=== PATIENT | female | born 1960 | race Caucasian/White ===

== ENCOUNTER → 2016-09-08 | Outpatient (REF) | payer OTHER ==
[2016-09-09 12:42] LABS: ALBUMIN 4.3 GM/DL (3.2-5.2); ALBUMIN/GLOBULIN RATIO 1.39 (1.00-1.93); ALKALINE PHOSPHATASE 95 U/L (45-117); ALT/SGPT 24 U/L (12-78); ANION GAP 13 MEQ/L (8-16); AST/SGOT 22 U/L (15-37); BILIRUBIN,TOTAL 0.6 MG/DL (0.2-1.0); BLOOD UREA NITROGEN 14 MG/DL (7-18); CALCIUM LEVEL 9.3 MG/DL (8.5-10.1); CARBON DIOXIDE LEVEL 25 MEQ/L (21-32); CHLORIDE LEVEL 102 MEQ/L (98-107); CREATININE FOR GFR 0.81 MG/DL (0.55-1.02); GLOMERULAR FILTRATION RATE > 60.0 (>51); GLUCOSE, FASTING 84 MG/DL (70-105); POTASSIUM SERUM 4.3 MEQ/L (3.5-5.1); SODIUM LEVEL 140 MEQ/L (136-145); TOTAL PROTEIN 7.4 GM/DL (6.4-8.2)
== END ==
LOC: M SFHCCLAY 16:42
PROVIDERS: ATTEND Nurse Practitioner
DX: E03.9 Hypothyroidism, unspecified (principal)

== ENCOUNTER → 2016-10-20 | Outpatient (REF) | payer OTHER | LOC: M SFHCWAGY 08:43 | PROVIDERS: ATTEND Nurse Practitioner Women's Health | DX: Z12.4 Encounter for screening for malignant neoplasm of cervix (principal); Z12.31 Encounter for screening mammogram for malignant neoplasm of breast ==

== ENCOUNTER → 2016-10-20 | Outpatient (CLI) | payer OTHER ==
--- NOTE | 2016-10-20 10:52 | REP ---
Digital screening mammography with CAD: Comparison mammography is from October 07, 2012, October 10, 2013, and October 11, 2014. October 15, 2015 study is also reviewed. Findings: Scattered fibroglandular elements are again noted unchanged. A needle biopsy marker clip is seen superficially in the upper outer quadrant of the left breast. Elsewhere in the upper outer quadrant of the left breast is a grouping of punctate microcalcifications which merit further evaluation. On MLO view there appear to be 8-10 polymorphic microcalcifications. Diagnostic left breast imaging was recommended. No suspicious abnormalities noted on the right. Impression: BIRADS category 0 incomplete breast imaging. Possible grouping of microcalcifications upper outer quadrant left breast. Diagnostic left mammography recommended. This mammogram was interpreted with the aid of an FDA-approved computer-aided detection system. The patient states she/he had a clinical breast exam in October 2016. The patient letter being requested is M0. Signed by Giorgi Garcia MD 10/20/2016 12:08 P
== END ==
LOC: M WHC 07:56
PROVIDERS: ATTEND Nurse Practitioner Women's Health
DX: Z12.31 Encounter for screening mammogram for malignant neoplasm of breast (principal); R92.8 Other abnormal and inconclusive findings on diagnostic imaging of breast

== ENCOUNTER → 2016-10-22 | Outpatient (CLI) | payer OTHER ==
--- NOTE | 2016-10-22 14:12 | REP ---
DIGITAL DIAGNOSTIC UNILATERAL LEFT BREAST MAMMOGRAPHY WITH CAD AND FOCUSED LEFT BREAST SONOGRAPHY: HISTORY: Screening mammography from October 20, 2016 was BIRADS category 0 incomplete because of possible grouping of microcalcifications projecting in the upper outer quadrant on the left. The patient gives a history of previous benign excisional and stereotactic needle biopsies of the left breast. Comparison is also made with October 15, 2015 prior mammography. MAMMOGRAPHIC FINDINGS: Magnified focal spot compression CC, MLO, and true MLO views of the left breast confirm the presence of a polymorphic microcalcific grouping in a 7 mm nodular opacity and in the surrounding breast parenchyma. This lesion projects in the upper outer quadrant middle third of the left breast. No other suspicious mammographic abnormality. SONOGRAPHIC FINDINGS: The left breast is scanned from the 12-o'clock position to 3-o'clock position encompassing the upper outer quadrant of the left breast. Fairly homogeneous background echotexture is seen. No mass, acoustic shadowing, architectural distortion or cyst is seen. IMPRESSION: BIRADS category 4 suspicious left breast imaging. Nodular density containing and surrounded by microcalcifications upper outer quadrant. Histologic sampling is recommended via stereotactic needle biopsy if possible. B-RADS/ACR category 4 mammogram. Suspicious abnormality - biopsy should be considered. Usually requires biopsy. This mammogram was interpreted with the aid of an FDA-approved computer-aided detection system. The patient states she/he had a clinical breast exam in October 23, 2016. The patient letter being requested is M4. Signed by Giorgi Garcia MD 10/22/2016 05:01 P
== END ==
LOC: M RAD 11:00
PROVIDERS: ATTEND Nurse Practitioner Women's Health
DX: Z12.31 Encounter for screening mammogram for malignant neoplasm of breast (principal)

== ENCOUNTER → 2016-11-12 | Outpatient (CLI) | payer OTHER ==
[~2016-11-12] MED LIST: LIDOCAINE 1% MDV 20ML VIAL As Ordered ONE
--- NOTE | 2016-11-12 14:57 | REP ---
STEROTACTIC IMAGES LEFT BREAST: Multiple sterotactic images of the left breast are performed prior to a scheduled sterotactic biopsy of clustered microcalcifications in the upper outer quadrant. Sales Appointment Coordinator images were obtained in the lateral to medial projection as well as in the craniocaudal projection. Neither projection allowed enough needle throw to allow for the biopsy to be performed. The sterotactic biopsy is not possible. We could perform needle localization for excisional biopsy. Signed by Rolando Estrada MD 11/12/2016 04:59 P
== END ==
LOC: M RADPRO 10:45
PROVIDERS: ATTEND Surgery
DX: R92.0 Mammographic microcalcification found on diagnostic imaging of breast (principal)

== ENCOUNTER → 2016-11-28 | Outpatient (REF) | payer OTHER ==
[~2016-11-28] MED LIST changes: +LEVO75TA4 PO; -LIDOCAINE 1% MDV 20ML VIAL As Ordered ONE; +SYNT50TA PO
== END ==
LOC: M SFHCCLAY 11:19
PROVIDERS: ATTEND Nurse Practitioner
DX: E03.9 Hypothyroidism, unspecified (principal)

== ENCOUNTER → 2016-12-05 | Day surgery (SDC) | payer OTHER ==
[~2016-12-05] VITALS: Ht 160 cm; Wt 74.8 kg
[~2016-12-05] MED LIST changes: +ACETAMINOPHEN TAB 650MG DOSE (2X325MG) PO PRN; +KETOROLAC 60 MG/2 ML VIAL (J1885) As Ordered ONE; +LIDOCAINE 1% MDV 20ML VIAL As Ordered ONE; +LIDOCAINE 1% SDV INJ 30 ML VIAL As Ordered ONE; +LIDOCAINE 2% INJ 100 MG/5 ML SDV (FOR ANES.) As Ordered ONE; +LR 1,000 ML IV ONE; +LR 1,000 ML IV SCH; +METOCLOPRAMIDE INJ 10MG/2ML VIAL (J2765) IV PRN; +MIDAZOLAM INJ 2 MG/2 ML VIAL (J2250) As Ordered ONE; +MORPHINE 2 MG/ML 1ML SYRINGE IV PRN; +NORCO, ANEXSIA 5/325MG TABLET (HYDROcodone/ACETAMINOPHEN) PO PRN; +NORCOTAB PO; +ONDANSETRON 4MG/2ML VIAL (J2405) As Ordered ONE; +ONDANSETRON 4MG/2ML VIAL (J2405) IV PRN; +PERCOCET 5MG/325MG TAB PO PRN; +PROPOFOL 200 MG/20 ML VIAL As Ordered ONE; +fentaNYL 100 MCG/2 ML INJECTION (J3010) As Ordered ONE; +fentaNYL 100 MCG/2 ML INJECTION (J3010) IV PRN
--- NOTE | 2016-12-05 14:41 | REP ---
SPECIMEN RADIOGRAPH: Specimen radiograph is performed following lumpectomy and surgical biopsy of clustered microcalcifications in the upper left breast. Calcifications are seen in the specimen adjacent to the localizing wire. Signed by Rolando Estrada MD 12/05/2016 03:59 P
[2016-12-05 15:20] VITALS: BP 124/65
--- NOTE | 2016-12-05 17:09 | REP ---
LEFT BREAST LOCALIZATION: The procedure was performed under the direct supervision of Dr. Estrada. The patient has a history of nodular density containing and surrounded by microcalcifications in the upper outer quadrant on the left breast seen on a previous mammogram dated 10/22/2016. A stereotactic left breast biopsy was attempted on 11/12/2016, however, there was not enough breast compression thickness. The patient was then referred for surgical biopsy. The risks and benefits of the procedure were explained to the patient and informed consent was obtained. A lateral medial approach was utilized. The calcifications were localized using mammographic guidance. The skin was prepped and draped in a sterile fashion. 1% Xylocaine was used as a local anesthetic. A 5 cm Liberty needle wire system was inserted. Followup mammographic images demonstrate good needle placement. The patient tolerated the procedure well and there were no immediate complications. Reviewed by PA Zuniga 12/08/2016 03:16 PEdited and Signed by Rolando Estrada MD 12/08/2016 04:52 P
--- NOTE | 2016-12-07 06:50 | RO ---
DATE OF PROCEDURE: 12/05/2016 PREOPERATIVE DIAGNOSIS: Microcalcifications left breast. POSTOPERATIVE DIAGNOSIS: Microcalcifications left breast. PROCEDURE PERFORMED: Needle-localized excisional biopsy of microcalcification left breast. SURGEON: Harshil Alarcon MD CUSTOMER SERVICE CONSULTANT: ANESTHESIA: Local of 1% Xylocaine with monitored anesthesia care. INDICATIONS FOR THE PROCEDURE: Patient is a 56-year-old woman who underwent routine mammography and was found to have a cluster of the faint microcalcifications in the upper outer quadrant of the breast. She was initially scheduled for stereotactic biopsy, but this was not possible due to inadequate breast thickness. She is now for a needle-localized excisional biopsy. OPERATIVE PROCEDURE: The patient had a localizing wire placed in the x-ray department. This entered the breast laterally and extended toward the retroareolar area. She was taken to the operating room where she was placed on the table in a supine position. She received sedation from anesthesia. The patient's left breast and chest wall were prepped and draped in a sterile fashion. The course of the needle was marked on the skin with a skin marker. I estimated from the provided targeting images the depth of the calcifications. These were estimated to lie just beneath or deep to the upper outer portion of the areola and almost centrally within the retroareolar tissues. I elected to make a circumareolar incision in the upper outer quadrant of the breast. She had an old scar also in the upper outer quadrant of the breast noted. Local anesthesia was achieved with 1% Xylocaine. An approximately 3-4 cm incision was made curving around the upper outer portion of the areola. The incision was deepened into the subcutaneous tissues. The surrounding skin was elevated slightly, particularly laterally. Dissection was then carried deeper into the breast to identify the guidewire. The guidewire was then cut laterally and brought into the wound. Dissection then proceeded along both sides of the specimen with a wide margin extending medially toward the retroareolar area and then deeper toward the pectoral fascia. In this manner, an approximately 4 x 3 x 2 cm portion of tissue was excised with the guidewire in place. A specimen image was obtained with the Momo device. On the first image, I could not be certain that there were calcifications. A second small portion of tissue was excised at the medial end of the dissection in the more central portion of the retroareolar area from the breast tissue in this region. This was approximately 2 x 2 x 1 cm fragment of tissue. This was placed onto the grid and a second bioptics image was obtained. On the second image, I could see what appeared to be some calcifications at the tip of the wire in the first specimen but none in the second specimen. These were quite faint and I elected to send the specimens down to the x-ray department for better imaging capability. These were both then sent fresh to the x-ray department for imaging. While this process was taking place, I inspected the wound for hemostasis and ensured this with the cautery. The breast tissue was elevated off of the underlying pectoral muscle superiorly and inferiorly so that this could be brought together to fill the gap. The breast tissue was approximated with buried sutures of chromic. The subcutaneous tissues were closed with chromic as well, and the skin edges were then brought into apposition with some buried chromic sutures and the skin incision was closed with a running subcuticular suture of Vicryl and Steri-Strips. As we approached the completion of the closure of wound, I received a call from Dr. Estrada of radiology who indicated to the nurse that the calcifications were within the specimen. A dressing was applied. The patient was awakened in the operating room and transported to the recovery room in stable condition.
== END ==
LOC: M SDC 07:45
PROVIDERS: ATTEND Surgery
DX: D05.12 Intraductal carcinoma in situ of left breast (principal); E03.9 Hypothyroidism, unspecified; Z79.899 Other long term (current) drug therapy; Z78.0 Asymptomatic menopausal state
CPT/HCPCS: 19125; 72265; 76098; 88305; 88342; J1885; J2250; J2405; J3010

== ENCOUNTER → 2016-12-30 | Outpatient (CLI) | payer OTHER ==
[~2016-12-30] MED LIST changes: -ACETAMINOPHEN TAB 650MG DOSE (2X325MG) PO PRN; -KETOROLAC 60 MG/2 ML VIAL (J1885) As Ordered ONE; -LIDOCAINE 1% MDV 20ML VIAL As Ordered ONE; -LIDOCAINE 1% SDV INJ 30 ML VIAL As Ordered ONE; -LIDOCAINE 2% INJ 100 MG/5 ML SDV (FOR ANES.) As Ordered ONE; -LR 1,000 ML IV ONE; -LR 1,000 ML IV SCH; -METOCLOPRAMIDE INJ 10MG/2ML VIAL (J2765) IV PRN; -MIDAZOLAM INJ 2 MG/2 ML VIAL (J2250) As Ordered ONE; -MORPHINE 2 MG/ML 1ML SYRINGE IV PRN; -NORCO, ANEXSIA 5/325MG TABLET (HYDROcodone/ACETAMINOPHEN) PO PRN; -ONDANSETRON 4MG/2ML VIAL (J2405) As Ordered ONE; -ONDANSETRON 4MG/2ML VIAL (J2405) IV PRN; -PERCOCET 5MG/325MG TAB PO PRN; -PROPOFOL 200 MG/20 ML VIAL As Ordered ONE; -fentaNYL 100 MCG/2 ML INJECTION (J3010) As Ordered ONE; -fentaNYL 100 MCG/2 ML INJECTION (J3010) IV PRN
--- NOTE | 2017-01-01 12:00 | RADONC ---
RADIATION ONCOLOGY CONSULTATION NOTE: DATE: 12/30/2016 CHART NUMBER: [id number]. DIAGNOSIS: Left breast cancer. STAGE: 0, [id number] ECOG PERFORMANCE STATUS: Zero. CONSULTATION NOTE: Ms. Anderson is a very pleasant, 56-year-old white female with the diagnosis of a stage 0, [id number], ductal carcinoma in situ of the left breast who is presenting to us today status post lumpectomy for consideration of postoperative radiation therapy for conservative breast management and cure. HISTORY OF PRESENT ILLNESS: The patient was in her usual state of health until routine mammogram was done on 10/20/2016, which showed some microcalcifications in the left breast. On 12/05/2016, the patient underwent needle localization, excisional biopsy and pathology revealed ductal carcinoma in situ. ER/AK stains were positive. The margins of resection appeared to be negative. The tumor measured 0.5 cm in diameter. The specimen size was 3 cm x 4 cm x 0.5 cm. A second piece was 2.5 cm x 2 cm x 0.5 cm. The patient has done well since surgery and is now presenting to us for discussion of postoperative radiation therapy as a therapeutic option. PAST MEDICAL HISTORY: The patient's past medical history is positive for hypothyroidism. ALLERGIES: The patient has NO KNOWN DRUG ALLERGIES. SOCIAL HISTORY: The patient does not smoke cigarettes nor abuse alcohol. FAMILY HISTORY: The patient's family history is positive for a father with leukemia and prostate cancer. REVIEW OF SYSTEMS: CONSTITUTIONAL: No fever, chills, sweats, fatigue, or weight loss. HEENT: No oral discomfort or mouth or lip ulcers. Hearing normal in both ears. RESPIRATORY: Denies cough, dyspnea, hemoptysis, pleurisy. CARDIOVASCULAR: Denies chest pain, palpitations. MUSCULOSKELETAL: Denies skeletal pain, joint swelling, pain, or erythema. GENITOURINARY: No history of urinary frequency, burning, hematuria, or pain. No testicular swelling or lumps. GASTROINTESTINAL: No nausea, vomiting, constipation, diarrhea, dysphagia, bleeding, or anorexia. SKIN: Denies rash, ecchymosis, petechiae, jaundice. NEUROLOGICAL: No headache, visual difficulty, motor weakness, sensory deficits, no paresthesias. EXTREMITIES: No extremity edema. PHYSICAL EXAMINATION: HEENT: No scleral icterus. Oral pharynx, oral mucous membranes normal. Conjunctivae normal. No thyroid enlargement or nodule. No jugular venous distention. Neck supple. Carotid upstrokes 1+, no bruits. Fundi normal bilaterally. RESPIRATORY: Lungs clear bilaterally to auscultation and percussion. No rales, rhonchi, or wheezing. BREASTS: Symmetrical, no palpable mass, no nipple discharge. CARDIOVASCULAR: PMI 5th left intercostal space, midline. S1, S2 normal. No S3, S4 or murmurs. Regular rhythm. Femoral, dorsalis pedis pulses 2+ bilaterally. LYMPHATICS: No palpable lymphadenopathy. ABDOMEN: Soft, nontender. Bowel sounds normal. No tenderness, guarding, or rebound. No palpable masses or hepatosplenomegaly. RECTAL: No masses or tenderness. Stool brown color. GENITOURINARY: Pelvic exam deferred - not applicable. MUSCULOSKELETAL: No focal skeletal tenderness to percussion. No joint swelling, warmth, tenderness, or erythema. SKIN: No rash, ecchymosis, or petechiae. Normal turgor. EXTREMITIES: No edema, clubbing, cyanosis. No thigh or calf tenderness. Normal range of motion. NEUROLOGICAL: No motor or sensory deficits. Cranial nerves intact, no pathological reflexes. MSRs 2+ and symmetrical. Visual coffman full to confrontation. Pupils equal, round, reactive to light and accommodation. ASSESSMENT: The patient is presenting to us today for discussion of her various therapy treatment options. I have discussed with her the most recent NCCN guidelines for ductal carcinoma in situ. We discussed in great detail the rates of local control with radiation versus without radiation. We discussed the trends in present thinking and treatment. I discussed logistics of treatment planning, simulation and subsequent fractionated daily radiation treatments. We also discussed long-term cosmetic results with radiation and without radiation. We discussed the overall cure rates. In addition, I went through great length with her discussing traditional fractionated daily radiation therapy versus the [place] protocol with hypofractionated treatments. She is quite young and I made clear to her that the studies do not project out more than just 12-13 years. I made clear that we cannot guarantee the cosmetic results 20-30 years from now with the hyperfractionation techniques. I have given her a copy of the NCCN guidelines and in addition, I have placed her on our list for discussion at multidisciplinary tumor conference. I have scheduled her to come back to us the following day to discuss the recommendations at tumor conference as well as her final decision. We have also set her up for initiation of treatment planning. This is a left-sided breast cancer and I explained her that once treatment planning is undertaken we will be able to see whether or not we can eliminate the majority of the heart from the radiation field. The amount of heart included in the field of course may be a factor in her final decision as well. Once again, in summary, I have scheduled the patient to be seeing us following discussion at multidisciplinary tumor conference to initiate treatment planning. Clearly the standard of care at this point is lumpectomy, followed by external beam radiation therapy. That appears to be the general consensus of the NCCN guidelines. Once again, as mentioned above, those recommendations are in the process of review and then we will go from there. cc: MD Harley Woody MD
== END ==
LOC: M ONCR 13:02
PROVIDERS: ATTEND Radiology Radiation Oncology
DX: C50.912 Malignant neoplasm of unspecified site of left female breast (principal)

== ENCOUNTER 2017-01-08 11:35 | Outpatient (RCR) | payer OTHER ==
[~2017-01-08 11:35] MED LIST changes: -SILV-4 TOP
--- NOTE | 2017-01-27 08:00 | RADONC ---
RADIATION ONCOLOGY PROGRESS NOTE DATE: 01/26/2017 CHART NUMBER: [id number] Ms. Anderson underwent her first fraction of radiation today to her left breast. Radiation was tolerated without difficulty or discomfort. REVIEW OF SYSTEMS: The patient's review of systems is noncontributory. She denies nausea, vomiting, fevers, chills, night sweats, diplopia, headaches, anxiety or depression, anorexia, weight loss, visual disturbances, chest pain, urinary or bowel difficulties, bone pain, or neurological problems. PHYSICAL EXAMINATION: The patient's skin is in excellent condition clearly showing no radiation change present. The remainder of her physical exam remains unchanged as well. Ms. Anderson tolerated her first fraction without difficulty and radiation will continue as scheduled.
== END 2017-02-02 ==
LOC: M ONCR 11:35
PROVIDERS: ATTEND Radiology Radiation Oncology
DX: D05.12 Intraductal carcinoma in situ of left breast (principal)

== ENCOUNTER → 2017-01-08 | Outpatient (CLI) | payer OTHER ==
[~2017-01-08] MED LIST changes: +SILV-4 TOP
[2017-01-08 12:03] LABS: MEAN CORPUSCULAR HEMOGLOBIN 28.5 pg (27.0-33.0); MEAN CORPUSCULAR HGB CONC 33.7 g/dl (32.0-36.5); MEAN CORPUSCULAR VOLUME 84.6 fl (80.0-96.0); RED CELL DISTRIBUTION WIDTH 12.8 % (11.5-14.5); WHITE BLOOD COUNT 7.2 K/mm3 (4.0-10.0)
== END ==
LOC: M RAD 10:46
PROVIDERS: ATTEND Radiology Radiation Oncology
DX: C50.912 Malignant neoplasm of unspecified site of left female breast (principal)

== ENCOUNTER 2017-02-03 10:12 | Outpatient (RCR) | payer OTHER ==
--- NOTE | 2017-02-09 15:19 | RADONC ---
RADIATION ONCOLOGY PROGRESS NOTE: DATE: 02/09/2017 CHART NUMBER: [id number] Ms. Anderson is presently at a dose of 1980 cGy to her left breast and is tolerating treatments quite well at this point with no complaints related to her radiation therapy. She has no breast or bone pain. REVIEW OF SYSTEMS: The patient's review of systems is noncontributory. Denies nausea, vomiting, fevers, chills, night sweats, diplopia, headaches, anxiety or depression, anorexia, weight loss, visual disturbances, chest pain, urinary or bowel difficulties, bone pain, or neurological problems. PHYSICAL EXAMINATION: The patient's skin is in good condition with no evidence moist or dry desquamation. There is just some erythema and tanning present. The remainder of physical exam remains unchanged. ASSESSMENT: The patient is clinically doing well at this point and radiation will continue as scheduled.
--- NOTE | 2017-02-17 08:33 | RADONC ---
RADIATION ONCOLOGY PROGRESS NOTE DATE: 02/16/2017 CHART NUMBER: [id number] Ms. Anderson is presently at a dose of 2880 cGy to her left breast and is tolerating treatments quite well at this point with no complaints related to her radiation therapy. She is having no breast or bone pain. REVIEW OF SYSTEMS: The patient's review of systems is noncontributory. She denies nausea, vomiting, fevers, chills, night sweats, diplopia, headaches, anxiety or depression, anorexia, weight loss, visual disturbances, chest pain, urinary or bowel difficulties, bone pain, or neurological problems. PHYSICAL EXAMINATION: The patient's skin is in good condition with no evidence of radiation change present. There is no moist or dry desquamation. The remainder of her physical exam remains unchanged. ASSESSMENT: Ms. Anderson is tolerating treatments quite well and radiation will continue as scheduled.
[2017-02-23] MEDS ORDERED: SILV-4 TOP (16:10)
--- NOTE | 2017-02-24 08:54 | RADONC ---
RADIATION ONCOLOGY PROGRESS NOTE DATE OF SERVICE: 02/23/2017 CHART NUMBER: [id number] Ms. Anderson is presently at a dose of 3780 cGy to her left breast and is tolerating treatments quite well at this point with no significant difficulties related to her radiation therapy other than some tenderness of the skin in the axillary region. The patient's review of systems is positive for some axillary skin tenderness but is otherwise noncontributory. She denies nausea, vomiting, fevers, chills, night sweats, diplopia, headaches, anxiety or depression, anorexia, weight loss, visual disturbances, chest pain, urinary or bowel difficulties, bone pain, or neurological problems. PHYSICAL EXAMINATION: The patient's skin is in good condition with no evidence of moist or dry desquamation. There is some erythema mostly in the axillary region. The remainder of her physical exam remains unchanged. Ms. Anderson is tolerating treatments quite well and radiation will continue as scheduled.
--- NOTE | 2017-02-28 06:48 | RADONC ---
RADIATION ONCOLOGY SIMULATION NOTE DATE: 02/26/2017 CHART NUMBER: [id number] Ms. Anderson was taken to the linear accelerator today for clinical setup of her left breast electron beam boost field. Setup was accomplished without difficulty or discomfort. Radiation treatment planning is underway and radiation treatments will begin subsequently. An immobilization device will be used throughout the course of treatment and has been setup without difficulty. I was physically present throughout the course of CT simulation.
--- NOTE | 2017-03-03 09:43 | RADONC ---
RADIATION ONCOLOGY PROGRESS NOTE DATE: 03/02/2017 CHART NUMBER: [id number] Ms. Anderson is presently at a dose of 4680 cGy to her left breast and is tolerating treatments quite well at this point with no complaints related to her radiation therapy. She is having no breast or bone pain. REVIEW OF SYSTEMS: The patient's review of systems is noncontributory. Denies nausea, vomiting, fevers, chills, night sweats, diplopia, headaches, anxiety or depression, anorexia, weight loss, visual disturbances, chest pain, urinary or bowel difficulties, bone pain, or neurological problems. PHYSICAL EXAMINATION: The patient's skin is in good condition on physical exam with no evidence of moist or dry desquamation. The remainder of her physical exam remains unchanged. Ms. Anderson is tolerating her treatments quite well and radiation will continue as scheduled.
== END 2017-03-05 ==
LOC: M ONCR 10:12
PROVIDERS: ATTEND Radiology Radiation Oncology
DX: D05.12 Intraductal carcinoma in situ of left breast (principal)

== ENCOUNTER 2017-03-06 10:40 | Outpatient (RCR) | payer OTHER ==
[~2017-03-06 10:40] MED LIST changes: +SILV-4 TOP
--- NOTE | 2017-03-11 10:56 | RADONC ---
RADIATION ONCOLOGY PROGRESS NOTE DATE: 03/10/2017 CHART NUMBER: [id number] Ms. Anderson is presently at a dose of 5660 cGy to her left breast and is tolerating treatments quite well at this point with no significant difficulties related to her radiation therapy. She is complaining of some tenderness of the skin over the boost field. She has no other complaints related to her radiation therapy or disease. REVIEW OF SYSTEMS: The patient's review of systems is positive for some skin tenderness but is otherwise noncontributory. Denies nausea, vomiting, fevers, chills, night sweats, diplopia, headaches, anxiety or depression, anorexia, weight loss, visual disturbances, chest pain, urinary or bowel difficulties, bone pain, or neurological problems. PHYSICAL EXAMINATION: The patient's breast shows erythema and tanning present throughout. There is a small area of some desquamation in the boost field. The remainder of her physical exam remains unchanged. Ms. Anderson is tolerating treatments quite well and has been given the option for a treatment break. She is using Silvadene. In light of the fact that she only has two fractions left, she wishes to complete therapy as prescribed. Radiation therefore will continue as scheduled.
--- NOTE | 2017-03-15 08:34 | RADONC ---
RADIATION ONCOLOGY TREATMENT SUMMARY DATE: 03/13/2017 CHART NUMBER: [id number] DIAGNOSIS: Left breast cancer. STAGE: 0, [id number] ECOG PERFORMANCE STATUS: 0. TREATMENT SUMMARY: Ms. Anderson is a very pleasant 56-year-old white female with the diagnosis of a stage 0, [id number] ductal carcinoma in situ of the left breast who presented to [facility] status post lumpectomy for consideration of postoperative radiation therapy for conservative breast management. We treated the patient to her left breast for a total dose of 4860 cGy delivered in 27 fractions of 180 cGy each over 36 elapsed days from 01/26/2017 through 03/03/2017. The patient's left breast was treated on a linear accelerator utilizing a 6 MV photon beam via medial lateral tangential coffman. 3-D conformal technique was utilized. Following completion of 4860 cGy to the entire left breast the primary site was boosted for an additional 1200 cGy delivered in six fractions of 200 cGy each from 03/04/2017 through 03/12/2017. The patient's primary site boost was treated on the linear accelerator utilizing a 9 MeV electron beam prescribed to the 90% isodose line via an en face technique. This brought the primary site to a total dose of 6060 cGy delivered in 33 fractions over 45 elapsed days from 01/31/2017 through 03/12/2017. Ms. Anderson tolerated her treatments quite well and was able to complete therapy as prescribed without interruption. The patient is scheduled see [facility] again in 1 month for further followup. She will also continue to be followed by her other physicians as well. cc: MD Harley Woody MD
== END 2017-04-04 ==
LOC: M ONCR 10:40
PROVIDERS: ATTEND Radiology Radiation Oncology
DX: D05.12 Intraductal carcinoma in situ of left breast (principal)

== ENCOUNTER → 2017-04-22 | Outpatient (CLI) | payer OTHER ==
--- NOTE | 2017-04-23 06:29 | RADONC ---
RADIATION ONCOLOGY FOLLOWUP NOTE DATE: 04/22/2017 CHART NUMBER: [id number]. DIAGNOSIS: Left breast cancer. STAGE: 0, [id number]. ECOG PERFORMANCE STATUS: Zero. FOLLOWUP NOTE: Ms. 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 The patient presents today reporting that she is doing quite well with no complaints at this time related to her radiation therapy or disease. She has no breast or bone pain. REVIEW OF SYSTEMS: The patient's review of systems is noncontributory. Denies nausea, vomiting, fevers, chills, night sweats, diplopia, headaches, anxiety or depression, anorexia, weight loss, visual disturbances, chest pain, urinary or bowel difficulties, bone pain, or neurological problems. PHYSICAL EXAMINATION: The patient is a well-developed, well-nourished, 57-year-old white female, in no acute distress. HEENT exam is normocephalic, atraumatic. Extraocular movements are intact. There is no palpable cervical, supraclavicular, infraclavicular, axillary, or inguinal lymphadenopathy present. Lungs are clear to auscultation and percussion. Heart has a regular rate and rhythm. Abdomen is benign with no hepatosplenomegaly, masses, or tenderness. Breast examination reveals no masses or discharge bilaterally. Skeletal examination reveals no tenderness to pressure or percussion of the bony skeleton. Extremities reveal no clubbing, cyanosis, or edema. Neurologic exam is grossly intact, as is the remainder of the physical examination. ASSESSMENT: The patient is clinically LEAH at this time and will be seen by us again in 6 months fro further followup. She will also need be followed by her other physicians as well. cc: MD Harley Woody MD
== END ==
LOC: M ONCR 14:26
PROVIDERS: ATTEND Radiology Radiation Oncology
DX: D05.12 Intraductal carcinoma in situ of left breast (principal)

== ENCOUNTER → 2017-10-22 | Outpatient (REF) | payer OTHER | LOC: M SFHCWAGY 08:40 | DX: Z12.4 Encounter for screening for malignant neoplasm of cervix (principal) ==

== ENCOUNTER → 2017-10-22 | Outpatient (CLI) | payer OTHER | LOC: M WHC 08:03 | DX: Z12.31 Encounter for screening mammogram for malignant neoplasm of breast (principal); Z78.0 Asymptomatic menopausal state; Z85.3 Personal history of malignant neoplasm of breast; Z92.3 Personal history of irradiation | CPT/HCPCS: 77067 ==

== ENCOUNTER → 2017-10-26 | Outpatient (REF) | payer OTHER ==
[2017-10-26 11:53] LABS: ALBUMIN 4.1 GM/DL (3.2-5.2); ALBUMIN/GLOBULIN RATIO 1.28 (1.00-1.93); ALKALINE PHOSPHATASE 89 U/L (45-117); ALT/SGPT 27 U/L (12-78); ANION GAP 5 MEQ/L (8-16); AST/SGOT 20 U/L (7-37); BILIRUBIN,TOTAL 0.5 MG/DL (0.2-1.0); BLOOD UREA NITROGEN 18 MG/DL (7-18); CALCIUM LEVEL 9.4 MG/DL (8.5-10.1); CARBON DIOXIDE LEVEL 31 MEQ/L (21-32); CHLORIDE LEVEL 106 MEQ/L (98-107); CHOLESTEROL LEVEL 175 MG/DL (<200); CHOLESTEROL RISK RATIO 2.573 (<5); CREATININE FOR GFR 0.83 MG/DL (0.55-1.30); GLOMERULAR FILTRATION RATE > 60.0 (>51); GLUCOSE, FASTING 93 MG/DL (70-100); HDL CHOLESTEROL 68 MG/DL (>40); LDL CHOLESTEROL 92.8 MG/DL (<100); NON-HDL-C 107 MG/DL; POTASSIUM SERUM 4.7 MEQ/L (3.5-5.1); SODIUM LEVEL 142 MEQ/L (136-145); TOTAL PROTEIN 7.3 GM/DL (6.4-8.2); TRIGLYCERIDES LEVEL 71 MG/DL (<150)
== END ==
LOC: M SFHCCLAY 08:30
DX: E78.2 Mixed hyperlipidemia (principal); E03.9 Hypothyroidism, unspecified
CPT/HCPCS: 84443

== ENCOUNTER → 2018-04-14 | Outpatient (CLI) | payer OTHER | LOC: M ONCR 15:16 | DX: D05.12 Intraductal carcinoma in situ of left breast (principal) | CPT/HCPCS: G0463 ==

== ENCOUNTER → 2018-09-08 | Outpatient (CLI) | payer OTHER ==
--- NOTE | 2018-09-08 16:05 | RADONC ---
RADIATION ONCOLOGY FOLLOWUP NOTE DATE: 09/08/2018 CHART NUMBER: [id number] DIAGNOSIS: Left breast cancer. STAGE: 0, [id number]. ECOG PERFORMANCE STATUS: Zero. FOLLOWUP NOTE: Ms. Anderson is a very pleasant, 58-year-old white female with the diagnosis of a stage 0, [id number], ductal carcinoma in situ of the left breast, who is presenting to us today for routine followup visit 1 year and 6 months post completion of external beam radiation therapy. The patient presents today reporting that she is doing quite well with no complaints at this time related to her radiation therapy or disease. She has no breast or bone pain. REVIEW OF SYSTEMS: The patient's review of systems is noncontributory. Denies nausea, vomiting, fevers, chills, night sweats, diplopia, headaches, anxiety or depression, anorexia, weight loss, visual disturbances, chest pain, urinary or bowel difficulties, bone pain, or neurological problems. PHYSICAL EXAMINATION: The patient is a well-developed, well-nourished, 58-year-old white female, in no acute distress. HEENT exam is normocephalic, atraumatic. Extraocular movements are intact. There is no palpable cervical, supraclavicular, infraclavicular, axillary, or inguinal lymphadenopathy present. Lungs are clear to auscultation and percussion. Heart has a regular rate and rhythm. Abdomen is benign with no hepatosplenomegaly, masses, or tenderness. Breast examination reveals no masses or discharge bilaterally. Skeletal examination reveals no tenderness to pressure or percussion of the bony skeleton. Extremities reveal no clubbing, cyanosis, or edema. Neurologic exam is grossly intact, as is the remainder of the physical examination. ASSESSMENT: The patient is clinically LEAH at this time and will be seen by us again in 6 months for further followup. She will also continue to be followed by her other physicians as well. A repeat mammogram is scheduled. I did have a lengthy discussion once again with this patient at the possibilities of some type of hormonal treatment. She does not appear interested in this and I let know that this was a personal choice. The patient reports that she had initially discussed this with Dr. Alarcon, who did not recommend such treatment. I did ask her if she wanted a referral to medical oncologist to discuss this further and once again she has declined. In the meantime, she will continue her followup with her other physicians.
== END ==
LOC: M ONCR 15:18
PROVIDERS: ATTEND Radiology Radiation Oncology
DX: D05.12 Intraductal carcinoma in situ of left breast (principal)

== ENCOUNTER → 2018-10-27 | Outpatient (CLI) | payer OTHER ==
[~2018-10-27] MED LIST changes: +HYDR-3715 PO; -NORCOTAB PO
--- NOTE | 2018-10-27 09:58 | REPMRS ---
Patient History The patient states she had a clinical breast exam in 10/2018. Patient is postmenopausal, has history of cancer in the left breast at age 56, and had previous chest radiation therapy at age 56. Family history of prostate cancer at age 50 or over in father. Malignant radio exam breast specimen of the left breast, December 05, 2016. Malignant localization of breast nodule of the left breast, December 05, 2016. Localization of Breast Nodule of the left breast, May 19, 2011. Stereotatic Breast Biopsy of the left breast, October 03, 2010. Stereotatic Breast Biopsy of the left breast, September 23, 2010. Benign excisional biopsy of the right breast, 2000. No Hormone Replacement Therapy 3D TOMOSYNTHESIS WAS PERFORMED. Digital Woman Screen Mammo: October 27, 2018 - Exam #: [id number] Bilateral CC and MLO view(s) were taken. Technologist: Dalila Curtis, Technologist Prior study comparison: October 22, 2017, digital woman screen mammo performed at [facility]. November 12, 2016, left breast digital mammo diagnostic unilateral, performed at [facility]. FINDINGS: The breast tissue is heterogeneously dense. This may lower the sensitivity of mammography. There has been no change in the appearance of the mammogram from the prior studies. There is a moderate amount of residual fibroglandular tissue which is fairly symmetric. There is no interval development of dominant mass, areas of architectural distortion, or clustered microcalcification typical of malignancy. Assessment: BI-RADS/ACR category 1 mammogram. Negative Mammogram. Recommendation Routine screening mammogram in 1 year (for women over age 40). This mammogram was interpreted with the aid of an FDA-approved computer-aided dectection system. Electronically Signed By: Rolando Estrada MD 10/27/18 [id number]
== END ==
LOC: M WHC 07:58
PROVIDERS: ATTEND Nurse Practitioner Women's Health
DX: Z12.31 Encounter for screening mammogram for malignant neoplasm of breast (principal); Z53.8 Procedure and treatment not carried out for other reasons; Z78.0 Asymptomatic menopausal state; Z92.3 Personal history of irradiation

== ENCOUNTER → 2018-12-08 | Outpatient (REF) | payer OTHER ==
[2018-12-09 12:17] LABS: FREE T4 1.01 NG/DL (0.76-1.46); THYROID STIMULATING HORMONE 2.39 uIU/ML (0.358-3.740)
== END ==
LOC: M SFHCCLAY 15:50
PROVIDERS: ATTEND Family Medicine
DX: E03.9 Hypothyroidism, unspecified (principal)

== ENCOUNTER → 2019-03-02 | Outpatient (CLI) | payer OTHER ==
--- NOTE | 2019-03-04 06:37 | RADONC ---
RADIATION ONCOLOGY FOLLOWUP NOTE DATE: 03/02/2019 CHART #: [id number] DIAGNOSIS: Left breast cancer. STAGE: 0, [id number] ECOG PERFORMANCE STATUS: 0. FOLLOWUP NOTE: Ms. Anderson is a very pleasant 58-year-old white female with the diagnosis of a stage 0, [id number], ductal carcinoma in situ of the left breast who is presenting to us today for routine followup visit 2 years post completion of external beam radiation therapy. The patient presents today reporting that she is doing quite well with no complaints at this time related to her radiation therapy or disease. She has no breast or bone pain. REVIEW OF SYSTEMS: The patient's review of systems is noncontributory. Denies nausea, vomiting, fevers, chills, night sweats, diplopia, headaches, anxiety or depression, anorexia, weight loss, visual disturbances, chest pain, urinary or bowel difficulties, bone pain, or neurological problems. PHYSICAL EXAMINATION: The patient is a well-developed, well-nourished, 58-year-old in no acute distress. HEENT exam is normocephalic, atraumatic. Extraocular movements are intact. There is no palpable cervical, supraclavicular, infraclavicular, axillary, or inguinal lymphadenopathy present. Lungs are clear to auscultation and percussion. Heart has a regular rate and rhythm. Abdomen is benign with no hepatosplenomegaly, masses, or tenderness. Breast examination reveals no masses or discharge bilaterally. Skeletal examination reveals no tenderness to pressure or percussion of the bony skeleton. Extremities reveal no clubbing, cyanosis, or edema. Neurologic exam is grossly intact, as is the remainder of the physical examination. ASSESSMENT: The patient is clinically LEAH at this time and is doing quite well. She is being followed closely by [facility] and they are ordering her routine mammograms. In addition, she is being followed by her other physicians. In light of this with my impending fpc, I have discharged her from my followup except on a p.r.n. basis. I will be available to her however for the next few months if she has any questions or if I could be of any assistance in the meantime. cc: DO Harshil Harris MD [facility]
== END ==
LOC: M ONCR 15:06
PROVIDERS: ATTEND Radiology Radiation Oncology
DX: D05.12 Intraductal carcinoma in situ of left breast (principal); Z92.3 Personal history of irradiation

== ENCOUNTER → 2019-10-31 | Outpatient (CLI) | payer OTHER ==
--- NOTE | 2019-10-31 13:07 | REPMRS ---
Patient History The patient states she had a clinical breast exam in October 2019. Family history of prostate cancer at age 50 or over in father. Malignant radio exam breast specimen of the left breast, December 05, 2016. Malignant localization of breast nodule of the left breast, December 05, 2016. Localization of Breast Nodule of the left breast, May 19, 2011. Stereotatic Breast Biopsy of the left breast, October 03, 2010. Stereotatic Breast Biopsy of the left breast, September 23, 2010. Benign excisional biopsy of the right breast, 2000. No Hormone Replacement Therapy Digital Woman Screen Mammo: October 31, 2019 - Exam #: [id number] Bilateral CC and MLO view(s) were taken. Technologist: Debbie Nguyen, Technologist Prior study comparison: October 27, 2018, bilateral digital woman screen mammo performed at [facility]. October 22, 2017, digital woman screen mammo performed at [facility]. October 20, 2016, digital woman screen mammo performed at [facility]. FINDINGS: There are scattered fibroglandular densities. Subtle post-treatment changes are again noted on the left. There is a needle biopsy marker clip in the left breast. There has been no change in the appearance of the mammogram from the prior studies. There is a mild amount of scattered fibroglandular density which is fairly symmetric. There is no interval development of dominant mass, architectural distortion, or grouped microcalcification suggestive of malignancy. 3-D tomosynthesis shows no additional findings. Assessment: BI-RADS/ACR category 2 mammogram. Benign Findings. Recommendation Routine screening mammogram of both breasts in 1 year (for women over age 40). This mammogram was interpreted with the aid of an FDA-approved computer-aided dectection system. Electronically Signed By: Michi Garcia MD 10/31/19 [id number]
== END ==
LOC: M WHC 10:05
PROVIDERS: ATTEND Nurse Practitioner Women's Health
DX: Z12.31 Encounter for screening mammogram for malignant neoplasm of breast (principal)

== ENCOUNTER → 2020-10-31 | Outpatient (CLI) | payer OTHER ==
--- NOTE | 2020-10-31 16:15 | REPMRS ---
Patient History The patient states she had a clinical breast exam in October 2020. Family history of prostate cancer at age 50 or over in father. Malignant radio exam breast specimen of the left breast, December 05, 2016. Malignant localization of breast nodule of the left breast, December 05, 2016. Localization of Breast Nodule of the left breast, May 19, 2011. Stereotatic Breast Biopsy of the left breast, October 03, 2010. Stereotatic Breast Biopsy of the left breast, September 23, 2010. Benign excisional biopsy of the right breast, 2000. No Hormone Replacement Therapy Patient states no breast complaints today. Patient has signed MRS History Sheet. Digital Woman Screen Mammo: October 31, 2020 - Exam #: [id number] Bilateral CC and MLO view(s) were taken. Technologist: RT Sherri Prior study comparison: October 31, 2019, bilateral digital woman screen mammo performed at [facility]. October 27, 2018, bilateral digital woman screen mammo performed at [facility]. FINDINGS: There are scattered fibroglandular densities. Screening. This patient?s lifetime risk for the development of invasive breast cancer can?t be calculated due to her age (less than 20 or greater than 85 years) or a prior history of in situ or invasive breast cancer. Digital screening (2D) mammography was performed bilaterally. Additionally, breast tomosynthesis (3D mammography) was performed bilaterally in the CC and MLO projections. Today's exam was compared to the prior exams(s). By history, the patient has no complaints of a palpable breast abnormality or other significant breast complaints. The patient is status post lumpectomy/chemo radiation therapy due to breast carcinoma. The breasts are unchanged in size and shape. There are no roseanna-areas of internal architectural distortion. There are no roseanna-soft tissue densities or areas of spiculation. There is unchanged skin thickening. IMPRESSION: BI-RADS Category 2- Benign Findings(s). There is no evidence of malignant alteration of the breasts. Routine bilateral screening mammogram recommended at its regularly scheduled annual interval. The Volpara volumetric breast density category is B, there are scattered areas of fibroglandular density. This mammogram was read with the assistance of [employer],an FDA approved computer aided detection system for mammography. Negative x-ray reports should not delay surgical consultation if a dominant or clinically suspicious mass is present. Not all breast cancers can be identified by mammography. Therefore, we recommend that you continue to perform regular breast self-examination and physical examination and then promptly contact your physician of any concerns or changes. Adenosis and dense breasts may obscure an underlying neoplasm. Assessment: BI-RADS/ACR category 2 mammogram. Benign Findings. Recommendation Routine screening mammogram of both breasts in 1 year. Electronically Signed By: Dominic Calzada DO 10/31/20 [id number]
== END ==
LOC: M WHC 14:10
PROVIDERS: ATTEND Nurse Practitioner Women's Health
DX: Z12.31 Encounter for screening mammogram for malignant neoplasm of breast (principal)

== ENCOUNTER → 2020-10-31 | Outpatient (REF) | payer OTHER | LOC: M SFHCWAGY 17:12 | PROVIDERS: ATTEND Nurse Practitioner Women's Health | DX: Z12.4 Encounter for screening for malignant neoplasm of cervix (principal) ==

== ENCOUNTER 2021-07-30 08:55 | Day surgery (SDC) | payer OTHER ==
[~2021-07-30] VITALS: Ht 160 cm; Wt 74.8 kg
[~2021-07-30 08:55] MED LIST changes: +AIRB1CHW3 PO; +NS 1,000 ML IV ONE
[2021-07-30] MEDS ORDERED: LIDOCAINE 2% 100MG/5ML SDV (FOR ANES.) As Ordered ONE (10:40)
[2021-07-30] MEDS ORDERED: propofoL 500 MG/50 ML VIAL As Ordered ONE (10:40)
[2021-07-30 11:16] VITALS: BP 130/60
== END 2021-07-30 11:30 | disposition home or self-care (01) ==
LOC: M OPP 08:55
PROVIDERS: ATTEND Internal Medicine Gastroenterology
DX: Z12.11 Encounter for screening for malignant neoplasm of colon (principal); Z86.010 Personal history of colon polyps; K63.5 Polyp of colon; K57.30 Diverticulosis of large intestine without perforation or abscess without bleeding; K64.8 Other hemorrhoids; Z79.899 Other long term (current) drug therapy; Z85.3 Personal history of malignant neoplasm of breast; Z92.3 Personal history of irradiation; Z80.6 Family history of leukemia; Z80.42 Family history of malignant neoplasm of prostate; Z84.0 Family history of diseases of the skin and subcutaneous tissue

== ENCOUNTER → 2021-11-01 | Outpatient (CLI) | payer OTHER ==
[~2021-11-01] MED LIST changes: -NS 1,000 ML IV ONE
== END ==
LOC: M WHC 10:21
PROVIDERS: ATTEND Obstetrics & Gynecology
DX: Z12.31 Encounter for screening mammogram for malignant neoplasm of breast (principal)

== ENCOUNTER → 2021-11-29 | Outpatient (REF) | payer OTHER ==
[2021-11-29 13:05] LABS: ALBUMIN 3.8 GM/DL (3.2-5.2); ALT/SGPT 24 U/L (12-78); BILIRUBIN,TOTAL 0.6 MG/DL (0.2-1.0); BLOOD UREA NITROGEN 16 MG/DL (7-18); CALCIUM LEVEL 9.2 MG/DL (8.5-10.1); CARBON DIOXIDE LEVEL 29 MEQ/L (21-32); CHLORIDE LEVEL 107 MEQ/L (98-107); CHOLESTEROL LEVEL 185 MG/DL (<200); CHOLESTEROL RISK RATIO 2.434 (<5); GLOMERULAR FILTRATION RATE > 60.0 (>51); GLUCOSE, FASTING 92 MG/DL (70-100); HDL CHOLESTEROL 76 MG/DL (>40); LDL CHOLESTEROL 100 MG/DL (<100); NON-HDL-C 109 MG/DL; POTASSIUM SERUM 4.7 MEQ/L (3.5-5.1); SODIUM LEVEL 139 MEQ/L (136-145); TOTAL PROTEIN 6.7 GM/DL (6.4-8.2); TRIGLYCERIDES LEVEL 43 MG/DL (<150)
== END ==
LOC: M SFHCCLAY 07:09
PROVIDERS: ATTEND Family Medicine
DX: E03.9 Hypothyroidism, unspecified (principal); E78.2 Mixed hyperlipidemia

== ENCOUNTER → 2022-11-24 | Outpatient (CLI) | payer SELFPAY | LOC: M WHC 10:13 | PROVIDERS: ATTEND Obstetrics & Gynecology | DX: Z12.31 Encounter for screening mammogram for malignant neoplasm of breast (principal) ==

== ENCOUNTER → 2023-12-08 | Outpatient (CLI) | payer OTHER | LOC: M WHC 09:35 | PROVIDERS: ATTEND Obstetrics & Gynecology | DX: M81.0 Age-related osteoporosis without current pathological fracture (principal) ==

== ENCOUNTER → 2024-02-18 | Outpatient (REF) | payer OTHER ==
[2024-02-18 17:10] LABS: ALBUMIN 4.3 G/DL (3.2-5.2); ALKALINE PHOSPHATASE 95 U/L (46-116); ALT/SGPT 52 U/L (7.0-40); AST/SGOT 28 U/L (<34); BILIRUBIN,TOTAL 0.7 MG/DL (0.3-1.2); BLOOD UREA NITROGEN 16 MG/DL (9-23); CALCIUM LEVEL 9.9 MG/DL (8.3-10.6); CARBON DIOXIDE LEVEL 32 MMOL/L (20-31); CHLORIDE LEVEL 103 MMOL/L (98-107); CHOLESTEROL LEVEL 223 MG/DL (<200); CHOLESTEROL RISK RATIO 3.23 (<5); CREATININE FOR GFR 0.83 MG/DL (0.55-1.30); GLOMERULAR FILTRATION RATE > 60.0 (>45); GLUCOSE, FASTING 91 MG/DL (74-106); HDL CHOLESTEROL 68.9 MG/DL (>40); LDL CHOLESTEROL 132.7 MG/DL (<100); NON-HDL-C 154.1 MG/DL; POTASSIUM SERUM 5.1 MMOL/L (3.5-5.1); SODIUM LEVEL 138 MMOL/L (136-145); TOTAL PROTEIN 7.4 G/DL (5.7-8.2); TRIGLYCERIDES LEVEL 107 MG/DL (<150)
[2024-02-18 17:11] LABS: THYROID STIMULATING HORMONE 2.811 uIU/ML (0.55-4.78)
[2024-02-18 17:12] LABS: FREE T4 1.39 NG/DL (0.89-1.76)
== END ==
LOC: M SFHCCLAY 09:18
PROVIDERS: ATTEND Family Medicine
DX: E03.9 Hypothyroidism, unspecified (principal); E78.2 Mixed hyperlipidemia

== ENCOUNTER → 2025-01-17 | Outpatient (CLI) | payer OTHER | LOC: M WHC 09:32 | PROVIDERS: ATTEND Obstetrics & Gynecology | DX: Z12.31 Encounter for screening mammogram for malignant neoplasm of breast (principal) ==